=== PATIENT | female | born 1960 | race African-American/Black ===

== ENCOUNTER 2022-01-24 12:00 | Observation (INO) | payer OTHER ==
[~2022-01-24] VITALS: Ht 167.6 cm; Wt 78.9 kg
[2022-01-24 13:35] VITALS: BP 173/92
[2022-01-24] MEDS ORDERED: METOPROLOL TARTRATE INJ 1 MG/ML VIAL IV PRN (13:45)
[2022-01-24 14:15] VITALS: BP 131/80
[2022-01-24] MEDS ORDERED: HYDROCODONE/APAP 5MG-325MG TAB PO PRN (14:45)
[2022-01-24] MEDS ORDERED: ACETAMINOPHEN 325 MG TAB PO PRN (14:45)
[2022-01-24] MEDS ORDERED: ONDANSETRON HCL INJ 2MG/ML 2ML 2 MG/ML VIAL IV PRN (14:45)
[2022-01-24] MEDS: HYDROCODONE/APAP 10MG-325MG TAB PO PRN ×2 (15:02→22:50)
[2022-01-24 15:21] LABS: ANION GAP 15.4 mmol/L (8-16); CALCIUM 9.6 mg/dL (8.4-10.2); CREATININE, SERUM 0.97 mg/dL (0.57-1.11); POTASSIUM 4.4 mmol/L (3.5-5.1)
[2022-01-24 15:22] VITALS: BP 131/80
[2022-01-24 15:34] LABS: CHOL/HDL RATIO 4.4 (3.0-3.6)
[2022-01-24 15:35] LABS: BASOPHILS % 0.5 % (0.0-1.0); EOSINOPHILS # (AUTO) 0.1 (0.0-0.4); EOSINOPHILS % 1.6 % (0.0-6.0); HEMATOCRIT 41.9 % (34.2-44.1); HEMOGLOBIN 12.9 g/dL (12.0-16.0); LYMPHOCYTES # (AUTO) 2.5 (1.0-3.2); LYMPHOCYTES % 38.8 % (18.0-39.1); MEAN CORPUSCULAR HEMOGLOBIN 28.8 pg (28-32); MEAN CORPUSCULAR HGB CONC 30.8 g/dL (31-35); MEAN CORPUSCULAR VOLUME 93.5 fL (81-99); MONOCYTES # (AUTO) 0.5 (0.2-0.8); MONOCYTES % 7.3 % (4.4-11.3); NEUTROPHILS # (AUTO) 3.3 (2.1-6.9); NEUTROPHILS % 51.5 % (38.7-80.0); PLATELET COUNT 198 x10e3/uL (140-360); RED BLOOD COUNT 4.48 x10e6/uL (3.6-5.1); RED CELL DISTRIBUTION WIDTH 11.4 % (11.7-14.4)
[2022-01-24 15:49] VITALS: BP 152/81
[2022-01-24] MEDS ORDERED: ENOXAPARIN SOD INJ 40 MG/0.4 ML SYR SC SCH (19:00)
[2022-01-24 21:00] VITALS: BP 152/81
[2022-01-24] MEDS: METOPROLOL TARTRATE 25 MG TAB PO SCH (21:25)
[2022-01-24 21:38] VITALS: BP 138/74
[2022-01-24] MEDS: ASPIRIN 325 MG TAB PO SCH (22:33)
[2022-01-24] MEDS ORDERED: IOPAMIDOL 370 MG/ML 100 ML INFUS..BTL INJ ONE (22:59)
[2022-01-25 01:39] VITALS: BP 127/77
[2022-01-25 05:00] VITALS: BP 131/74
[2022-01-25 07:58] VITALS: BP 141/84
[2022-01-25] MEDS: HYDROCODONE/APAP 10MG-325MG TAB PO PRN (08:32)
[2022-01-25] MEDS: ASPIRIN 325 MG TAB PO SCH (08:33)
[2022-01-25] MEDS: METOPROLOL TARTRATE 25 MG TAB PO SCH (08:33)
[2022-01-25 08:40] VITALS: BP 141/84
[2022-01-25] MEDS ORDERED: LORATADINE10 MG PO (10:21)
[2022-01-25] MEDS ORDERED: LOPRESSOR25 MG PO (10:21)
[2022-01-25 11:34] VITALS: BP 119/69
[2022-01-25] MEDS ORDERED: ONDANSETRON HCL 4 MG ORAL DISINTEGRATING TAB PO PRN (12:30)
== END 2022-01-25 12:30 | disposition home or self-care (01) ==
LOC: MED/SURG2 13:25
PROVIDERS: ADMIT Internal Medicine; ATTEND Internal Medicine
DX: R07.89 Other chest pain (principal); E66.09 Other obesity due to excess calories; Z68.28 Body mass index [BMI] 28.0-28.9, adult; R73.9 Hyperglycemia, unspecified; Z20.822 Contact with and (suspected) exposure to COVID-19; G89.4 Chronic pain syndrome
CPT/HCPCS: 36415; 71260; 80048; 80061; 84484; 85025; 93970; G0378 ×2; J1650; Q9967